=== PATIENT | male | born 1970 | race Caucasian/White ===

== ENCOUNTER 2018-04-17 15:43 | Emergency (ER) | payer SELFPAY ==
[2018-04-17] MEDS ORDERED: IPRATROPIUM/ALBUTEROL 3 ML VIAL NEB ONE (16:12)
[2018-04-17 16:27] VITALS: TEMP 98
[2018-04-17] MEDS ORDERED: SUCRALFATE 1 GM/10 ML 1 GM UD PO ONE (16:31)
--- NOTE | 2018-04-17 16:31 | RAD ---
PROCEDURE: Chest,2 Views CLINICAL HISTORY: sob INDICATION: Same as above COMPARISON: 06/16/2015 TECHNIQUE: PA and and lateral chest radiographs were obtained. FINDINGS: Note is again made of underlying changes of COPD and few old left-sided rib fractures There are no discrete airspace infiltrates, pneumothoraces or pleural effusions. The pulmonary vascularity is normal The cardiomediastinal silhouette is unremarkable for patient's age and sex. IMPRESSION: There is no acute pleural-parenchymal process seen in the imaged lung rod. Changes of COPD Electronically signed by: Joel Souza MD 04/17/2018 4:29 PM CDT Workstation: [id number]
--- NOTE | 2018-04-17 16:36 | ED.PDOC ---
History of Present Illness - General Chief Complaint: General Stated Complaint: joint pain and daily vomiting Time Seen by Provider: 04/17/18 15:51 Source: patient Exam Limitations: no limitations - History of Present Illness Initial Comments: the patient is a 47-year-old male presenting to the emergency room secondary to a Constellation of symptoms. Symptoms have been progressive over the last year. Most obvious right now is that the patient is in a COPD exacerbation. He did have a history of asthma as a child and does smoke.he reports that last week he had significant lower extremity edema. He also reports a long-standing history of alcohol abuse. He has been trying to wean down. He also reports that in the morning he will cough until he throws up some. No blood or bile. No real abdominal pain. He does have a history of some gastritis and reflux issues. No fever. He reports burning and tingling in his body throughout. No history of any congestive heart failure. 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 Timing/Duration: unsure Severity: moderate Improving Factors: nothing Worsening Factors: nothing Associated Symptoms: cough, diaphoresis, headaches, loss of appetite, malaise, nausea/vomiting, shortness of breath, weakness Allergies/Adverse Reactions: Allergies NO KNOWN ALLERGY Allergy (Verified 04/17/18 16:04) Home Medications: Ambulatory Orders Albuterol Inhaler [Ventolin Hfa Inhaler] 2 puff INH Q4HR PRN #1 inh 04/17/18 Azithromycin 500 mg PO DAILY #5 tab 04/17/18 Famotidine 20 mg PO DAILY #30 tab 04/17/18 predniSONE [Prednisone] 20 mg PO DAILY #5 tab 04/17/18 Review of Systems - Review of Systems Constitutional: States: malaise EENTM: States: no symptoms reported Respiratory: States: cough, short of breath, wheezing Cardiology: States: edema Gastrointestinal/Abdominal: States: nausea, vomiting Genitourinary: States: no symptoms reported Musculoskeletal: States: back pain, joint pain, joint swelling, muscle pain, muscle stiffness Skin: States: dryness Neurological: States: anxiety, depressed Endocrine: States: excessive sweating Hematologic/Lymphatic: States: no symptoms reported All other Systems: No Change from Baseline Past Medical History (General) - Patient Medical History Hx Seizures: No Hx Stroke: No Hx Dementia: No Hx Asthma: Yes - as child Hx of COPD: No Hx Cardiac Disorders: No Hx Congestive Heart Failure: No Hx Pacemaker: No Hx Hypertension: Yes Hx Thyroid Disease: No Hx Diabetes: No Hx Gastroesophageal Reflux: Yes Hx Renal Disease: No Hx Cancer: No Hx of HIV: No Hx Hepatitis C: No Hx MRSA: No Surgical History: other - Vaccination History Hx Tetanus, Diphtheria Vaccination: No Hx Influenza Vaccination: No Hx Pneumococcal Vaccination: No - Social History Hx Tobacco Use: Yes Hx Chewing Tobacco Use: No Hx Alcohol Use: Yes Hx Substance Use: No Hx Substance Use Treatment: No Hx Depression: No Hx Physical Abuse: No Hx Emotional Abuse: No - Female History Patient : No Family Medical History - Family History Father Family History: Unknown Living Status: Hx Cardiac Disease: Yes Hx Family Cancer: Yes Physical Exam - Physical Exam General Appearance: Alert, Comfortable, No apparent distress Eye Exam: bilateral normal Ears, Nose, Throat: hearing grossly normal, normal ENT inspection, normal pharynx Neck: full range of motion, supple Respiratory: no respiratory distress, no accessory muscle use, rales, rhonchi, wheezing Cardiovascular/Chest: normal peripheral pulses, regular rate, rhythm, no edema Peripheral Pulses: radial,right: 2+, radial,left: 2+, dorsalis pedis,right: 2+, dorsalis pedis,left: 2+ Gastrointestinal/Abdominal: normal bowel sounds, non tender, soft Rectal Exam: deferred Back Exam: normal inspection, no CVA tenderness, no vertebral tenderness Extremity: normal range of motion, non-tender, normal inspection, no pedal edema , normal capillary refill Neurologic: surgical oncologist II-XII nml as tested, alert, normal mood/affect, oriented x 3 Skin Exam: normal color Comments: Vital Signs - 24 hr 04/17/18 15:53 Temperature 98.0 F Pulse Rate [ 96 H pulse ox] Respiratory 20 Rate Blood Pressure 152/119 [Left Arm] O2 Sat by Pulse 98 Oximetry chest x-ray shows changes consistent with COPD. EKG shows normal sinus rhythm at 87 bpm. Mild right axis deviation. Criteria is present for LVH. No ST segment or T-wave changes consistent with acute ischemia. Mild QT prolongation. Progress - Progress Progress: 04/17/18 17:31 the patient is a 47-year-old male with a multitude of complaints presenting today primarily with a COPD exacerbation and issues of gastritis likely associated with alcohol abuse. The patient needs to continue to wean down his smoking and his alcohol use. For the COPD exacerbation he has received several breathing treatments here and has received a dose of oral prednisone. He will also be placed on azithromycin and be written for an albuterol inhaler. For the gastritis he is going to be placed on Pepcid daily. Due to his extensive alcohol use he is to take a Centrum Silver daily and a vitamin B complex tablet daily both of these at the opposite time of day of the Pepcid. He needs to keep himself well-hydrated. He needs to obtain a primary care doctor. He needs to be followed for possible thiamine, B12 and folate deficiency. These may be contributing to his neuropathic symptoms. ER warnings were given. - Results/Orders Results/Orders: Laboratory Tests 04/17/18 04/17/18 04/17/18 16:20 16:28 16:28 WBC 8.7 RBC 5.04 Hgb 17.4 Hct 50.9 MCV 101.0 H MCH 34.6 H MCHC 34.2 RDW 14.0 Plt Count 293 MPV 9.2 Absolute Neuts (auto) 4.40 Absolute Lymphs (auto) 2.70 Absolute Monos (auto) 1.00 H Absolute Eos (auto) 0.40 Absolute Basos (auto) 0.20 H Neutrophils % 51.0 Lymphocytes % 30.9 Monocytes % 11.9 H Eosinophils % 4.4 Basophils % 1.8 Sodium Potassium Chloride Carbon Dioxide Anion Gap BUN Creatinine BUN/Creatinine Ratio Random Glucose Serum Osmolality Calcium Total Bilirubin AST ALT Alkaline Phosphatase Creatine Kinase 309 H* CK-MB (CK-2) 3.6 CK-MB (CK-2) % 1.17 Troponin I < 0.02 B-Natriuretic Peptide 12.6 Serum Total Protein Albumin Globulin Albumin/Globulin Ratio Urine Color Yellow Urine Appearance Clear Urine pH 5.5 Ur Specific Ace <= 1.005 Urine Protein Negative Urine Glucose (UA) Negative Urine Ketones Negative Urine Blood Negative Urine Nitrite Negative Urine Bilirubin Negative Urine Urobilinogen 0.2 Ur Leukocyte Esterase Negative Urine RBC 0 Urine WBC 0 Ur Epithelial Cells 0 Urine Bacteria 0 04/17/18 16:28 WBC RBC Hgb Hct MCV MCH MCHC RDW Plt Count MPV Absolute Neuts (auto) Absolute Lymphs (auto) Absolute Monos (auto) Absolute Eos (auto) Absolute Basos (auto) Neutrophils % Lymphocytes % Monocytes % Eosinophils % Basophils % Sodium 134 L Potassium 3.4 L Chloride 97 L Carbon Dioxide 25 Anion Gap 15.4 BUN 22 H Creatinine 1.13 BUN/Creatinine Ratio 19.5 Random Glucose 115 H Serum Osmolality 272.5 L Calcium 9.3 Total Bilirubin 0.6 AST 31 ALT 20 Alkaline Phosphatase 69 Creatine Kinase CK-MB (CK-2) CK-MB (CK-2) % Troponin I B-Natriuretic Peptide Serum Total Protein 8.6 H Albumin 4.8 Globulin 3.8 H Albumin/Globulin Ratio 1.3 Urine Color Urine Appearance Urine pH Ur Specific Ace Urine Protein Urine Glucose (UA) Urine Ketones Urine Blood Urine Nitrite Urine Bilirubin Urine Urobilinogen Ur Leukocyte Esterase Urine RBC Urine WBC Ur Epithelial Cells Urine Bacteria Departure - Departure Clinical Impression: COPD with acute exacerbation, Alcohol abuse Acute alcoholic gastritis Qualifiers: Gastritis bleeding: without bleeding Qualified Code(s): K29.20 - Alcoholic gastritis without bleeding Disposition: Discharge to Home or Self Care Condition: Fair Departure Forms: ED Discharge - Pt. Copy, Patient Portal Self Enrollment Instructions: Drug Abuse and Drug Addiction (DC), Gastritis (DC), Exacerbation of COPD (DC) Diet: bland diet Activity: increase activity as tolerated Prescriptions: Albuterol Inhaler [Ventolin Hfa Inhaler] 2 puff INH Q4HR PRN #1 inh PRN Reason: Shortness Of Breath Azithromycin 500 mg PO DAILY #5 tab Famotidine 20 mg PO DAILY #30 tab predniSONE [Prednisone] 20 mg PO DAILY #5 tab Home Medications: Ambulatory Orders Albuterol Inhaler [Ventolin Hfa Inhaler] 2 puff INH Q4HR PRN #1 inh 04/17/18 Azithromycin 500 mg PO DAILY #5 tab 04/17/18 Famotidine 20 mg PO DAILY #30 tab 04/17/18 predniSONE [Prednisone] 20 mg PO DAILY #5 tab 04/17/18 Additional Instructions: the patient is a 47-year-old male with a multitude of complaints presenting today primarily with a COPD exacerbation and issues of gastritis likely associated with alcohol abuse. The patient needs to continue to wean down his smoking and his alcohol use. For the COPD exacerbation he has received several breathing treatments here and has received a dose of oral prednisone. He will also be placed on azithromycin and be written for an albuterol inhaler. For the gastritis he is going to be placed on Pepcid daily. Due to his extensive alcohol use he is to take a Centrum Silver daily and a vitamin B complex tablet daily both of these at the opposite time of day of the Pepcid. He needs to keep himself well-hydrated. He needs to obtain a primary care doctor. He needs to be followed for possible thiamine, B12 and folate deficiency. These may be contributing to his neuropathic symptoms. ER warnings were given.
[2018-04-17] MEDS ORDERED: THIAMINE HCL 100 MG TAB PO ONE (16:58)
[2018-04-17] MEDS ORDERED: predniSONE 20 MG TAB PO ONE (17:06)
[2018-04-17] MEDS ORDERED: AZITHROMYCIN 250 MG TAB PO ONE (17:06)
[2018-04-17] MEDS ORDERED: LISINOPRIL 10 MG TAB PO ONE (17:07)
[2018-04-17 17:51] VITALS: BP 127/99; O2SAT 99
[2018-04-18] MEDS ORDERED: THIAMINE HCL 100 MG TAB PO ONE (16:31)
== END 2018-04-17 17:51 | disposition home or self-care (01) ==
LOC: ER 15:43
DX: J44.1 Chronic obstructive pulmonary disease with (acute) exacerbation (principal); K29.20 Alcoholic gastritis without bleeding; I10 Essential (primary) hypertension; K21.9 Gastro-esophageal reflux disease without esophagitis; F17.200 Nicotine dependence, unspecified, uncomplicated; Z79.899 Other long term (current) drug therapy
CPT/HCPCS: 36415; 71046; 80053; 81001; 82550; 82553; 83880; 84484; 85025; 93005; 94640; J7512; J7620; Q0144

== ENCOUNTER 2019-07-19 08:08 | Emergency (ER) | payer SELFPAY ==
[2019-07-19 08:22] VITALS: BP 130/95; TEMP 96.1; O2SAT 100
[2019-07-19] MEDS ORDERED: METHOCARBAMOL 750 MG TAB PO ONE (08:26)
[2019-07-19] MEDS ORDERED: KETOROLAC TROMETHAMINE INJ 30 MG/ML VIAL IM ONE (08:26)
--- NOTE | 2019-07-19 08:33 | ED.PDOC ---
History of Present Illness - General Chief Complaint: General Stated Complaint: Chronic R shoulder pain Time Seen by Provider: 07/19/19 08:23 Source: patient Exam Limitations: no limitations - History of Present Illness Timing/Duration: other - several month Improving Factors: nothing Worsening Factors: movement Associated Symptoms: denies symptoms - 48yo M history with prior clavicular fx and chronic decreased ROM now with continued pain right shoulder for several months. Denies worsening, but reports continued pain not relieved by other medications he has tried. Denies fever, redness, chest pain, or other symptoms. Allergies/Adverse Reactions: Allergies NO KNOWN ALLERGY Allergy (Verified 04/17/18 16:04) Home Medications: Ambulatory Orders Albuterol Inhaler [Ventolin Hfa Inhaler] 2 puff INH Q4HR PRN #1 inh 04/17/18 Azithromycin 500 mg PO DAILY #5 tab 04/17/18 Famotidine 20 mg PO DAILY #30 tab 04/17/18 predniSONE [Prednisone] 20 mg PO DAILY #5 tab 04/17/18 Methocarbamol 500 mg PO Q8HRS PRN #20 tab 07/19/19 Naproxen [Naproxen EC] 500 mg PO Q12HRS PRN 7 Days #14 tab 07/19/19 Review of Systems - Review of Systems Constitutional: States: no symptoms reported EENTM: States: no symptoms reported Respiratory: States: no symptoms reported Cardiology: States: no symptoms reported Gastrointestinal/Abdominal: States: no symptoms reported Genitourinary: States: no symptoms reported Musculoskeletal: States: joint pain - right shoulder, chronic with decreased ROM . Denies: joint swelling, muscle pain Past Medical History (General) - Patient Medical History Hx Seizures: No Hx Stroke: No Hx Dementia: No Hx Asthma: Yes - as child Hx of COPD: No Hx Cardiac Disorders: No Hx Congestive Heart Failure: No Hx Pacemaker: No Hx Hypertension: Yes Hx Thyroid Disease: No Hx Diabetes: No Hx Gastroesophageal Reflux: Yes Hx Renal Disease: No Hx Cancer: No Hx of HIV: No Hx Hepatitis C: No Hx MRSA: No Surgical History: other - Vaccination History Hx Tetanus, Diphtheria Vaccination: No Hx Influenza Vaccination: No Hx Pneumococcal Vaccination: No - Social History Hx Tobacco Use: Yes Hx Chewing Tobacco Use: No Hx Alcohol Use: Yes Hx Substance Use: No Hx Substance Use Treatment: No Hx Depression: No Hx Physical Abuse: No Hx Emotional Abuse: No - Female History Patient is a Female of Child Bearing Age (10 -59 yrs old): No Patient : No Family Medical History - Family History Father Family History: Unknown Living Status: Hx Cardiac Disease: Yes Hx Family Cancer: Yes Physical Exam - Physical Exam General Appearance: Comfortable, No apparent distress Neck: non-tender, full range of motion Respiratory: chest non-tender, lungs clear, normal breath sounds Cardiovascular/Chest: normal peripheral pulses, regular rate, rhythm, no edema Peripheral Pulses: radial,right: 1+, radial,left: 1+ Gastrointestinal/Abdominal: non tender Back Exam: normal inspection, no vertebral tenderness Extremity: normal range of motion - LUE: FROM all joints, 5/5 strenght, normal sensation; RUE: FROM all joints except shoulder, which is limited in abduction secondary to pain, chronic deformity clavicle, 5/5 strength, normal sensation, non-tender Progress - Progress Progress: Well-appearing, afebrile, neurovascularly intact. Does not appear septic joint. Possible crystal arthropathy, OA, or RA. Plan for labs/imaging as appropriate, pain control PRN. Likely d/c home with PCP f/u if workup unremarkable. ED warnings given, f/u PCP. 07/19/19 08:51 Yaron Martins MD #[id number] 07/19/19 08:54 Departure - Departure Clinical Impression: Arthralgia Disposition: Discharge to Home or Self Care Departure Forms: ED Discharge - Pt. Copy, Patient Portal Self Enrollment Diet: resume usual diet Activity: increase activity as tolerated Referrals: Lowell Fair MD [Active Staff] - 1-2 Weeks Prescriptions: Methocarbamol 500 mg PO Q8HRS PRN #20 tab PRN Reason: muscle cramping Naproxen [Naproxen EC] 500 mg PO Q12HRS PRN 7 Days #14 tab PRN Reason: Pain Home Medications: Ambulatory Orders Albuterol Inhaler [Ventolin Hfa Inhaler] 2 puff INH Q4HR PRN #1 inh 04/17/18 Azithromycin 500 mg PO DAILY #5 tab 04/17/18 Famotidine 20 mg PO DAILY #30 tab 04/17/18 predniSONE [Prednisone] 20 mg PO DAILY #5 tab 04/17/18 Methocarbamol 500 mg PO Q8HRS PRN #20 tab 07/19/19 Naproxen [Naproxen EC] 500 mg PO Q12HRS PRN 7 Days #14 tab 07/19/19
== END 2019-07-19 09:00 | disposition home or self-care (01) ==
LOC: ER 08:08
DX: M25.511 Pain in right shoulder (principal); G89.29 Other chronic pain; K21.9 Gastro-esophageal reflux disease without esophagitis; I10 Essential (primary) hypertension; Z87.81 Personal history of (healed) traumatic fracture; Z87.891 Personal history of nicotine dependence; Z79.899 Other long term (current) drug therapy